=== PATIENT | male | born 1980 | race Caucasian/White ===

== ENCOUNTER 2022-08-03 18:10 | Emergency (ER) | payer OTHER, SELFPAY ==
--- NOTE | ~2022-08-03 | XR_ITS ---
EXAMINATION: XR forearm LT 2V INDICATION: Left forearm pain TECHNIQUE: Two views of the left forearm are obtained. COMPARISON: None available FINDINGS: There is soft tissue swelling adjacent to the distal ulna. Bone alignment is normal. There is no fracture. Alignment at the wrist and elbow is normal. IMPRESSION: 1. Soft tissue injury adjacent to the distal ulna without acute osseous abnormality. Reviewed, dictated and finalized at location F. IMPRESSION: 1. Soft tissue injury adjacent to the distal ulna without acute osseous abnorma [place].
[2022-08-03 18:20] VITALS: BP 142/72; PULSE 65; RESP 18; TEMP 36.6; O2SAT 99
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
== END 2022-08-03 18:52 | disposition home or self-care (01) ==
PROVIDERS: Emergency Provider Nurse Practitioner Family
DX: S50.12XA Contusion of left forearm, initial encounter (principal); X58.XXXA Exposure to other specified factors, initial encounter; Y93.17 Activity, water skiing and wake boarding
CPT/HCPCS: 73090; 99213; G0463